=== PATIENT | male | born 1995 | race American Indian/Alaskan Native ===

== ENCOUNTER 2018-07-13 15:03 | Emergency (ER) | payer MEDICAID, OTHER ==
--- NOTE | 2018-07-13 16:25 | Emergency Department Report ---
Blank Doc - Documentation Documentation: This is a 23 y.o. male that presents for further evaluation for inpatient psyc hiatric treatment. PMH of autism, generalized anxiety, and depression. Mother reports he no longer can control anger. Today he told mom he no longer want to live because he is lonely. Patient admit to wanting to . He was seen at an outpatient clinic who advised he have workup for inpatient therapy. Ordered: labs Fast track for further evaluation.
[2018-07-13 17:04] LABS: Basophils % (Auto) 0.4 % (0.0-1.8); Eosinophils # (Auto) 0.1 K/mm3 (0.0-0.4); Eosinophils % (Auto) 2.2 % (0.0-4.3); Hematocrit 43.4 % (35.5-45.6); Hemoglobin 14.9 gm/dl (11.8-15.2); Lymphocytes # (Auto) 1.9 K/mm3 (1.2-5.4); Lymphocytes % (Auto) 46.1 % (13.4-35.0); Mean Corpuscular HGB Conc 34 % (32-34); Mean Corpuscular Volume 99 fl (84-94); Monocytes # (Auto) 0.5 K/mm3 (0.0-0.8); Monocytes % (Auto) 11.9 % (0.0-7.3); Platelet Count 228 K/mm3 (140-440); Red Blood Count 4.39 M/mm3 (3.65-5.03); Red Cell Distribution Width 12.6 % (13.2-15.2)
[2018-07-13 17:25] LABS: Alanine Aminotransferase 15 units/L (7-56); Albumin 4.6 g/dL (3.9-5); BUN/Creatinine Ratio 20; Blood Urea Nitrogen 16 mg/dL (9-20); Calcium 9.9 mg/dL (8.4-10.2); Hemolysis Index 23
--- NOTE | 2018-07-13 19:14 | Emergency Department Report ---
ED Psych HPI - General Chief Complaint: Psych Stated Complaint: PSYCH EVAL Time Seen by Provider: 07/13/18 16:20 Source: patient, family Mode of arrival: Ambulatory - History of Present Illness Initial Comments: Lenin is a very pleasant 73-year-old male with history of depression, and anxiety, autism and Asperger's syndrome who presents from Dr. Camejo's office for violent behavior toward mother and suicidal ideation. He states according to mother's report that he does not "want to be here anymore". He denies thoughts of harm to me. He does not recall pushing or hitting his mother. He is quite pleasant and alert. He is cooperative. MD Complaint: suicidal ideation, other (Christine behavior) -: Gradual Associated Psychiatric Symptoms: suicidal ideation Quality: resolved prior to arrival Associated Symptoms: denies other symptoms - Related Data Allergies Allergy/AdvReac Type Severity Reaction Status Date / Time Fish Containing Products Allergy Rash Verified 07/13/18 16:23 ED Review of Systems ROS: Stated complaint: PSYCH EVAL Other details as noted in HPI Constitutional: denies: fever, malaise Respiratory: denies: orthopnea Cardiovascular: denies: chest pain ED Past Medical Hx - Past Medical History Previous Medical History?: Yes Hx Psychiatric Treatment: Yes (depression, anxiety) Additional medical history: autism, aspergers - Surgical History Past Surgical History?: Yes Additional Surgical History: cleft lip repair - Social History Smoking Status: Never Smoker Substance Use Type: None ED Physical Exam - General Limitations: No Limitations General appearance: alert, in no apparent distress, other (smiling, pleasant, cooperative, calm) - Head Head exam: Present: atraumatic, normocephalic - Eye Eye exam: Present: normal appearance - ENT ENT exam: Present: mucous membranes moist - Neck Neck exam: Present: normal inspection - Respiratory Respiratory exam: Present: normal lung sounds bilaterally. Absent: respiratory distress, wheezes, rales, rhonchi - Cardiovascular Cardiovascular Exam: Present: regular rate, normal rhythm, normal heart sounds. Absent: systolic murmur, diastolic murmur, rubs, gallop - GI/Abdominal GI/Abdominal exam: Present: soft, normal bowel sounds. Absent: distended, tenderness, guarding, rebound - Rectal Rectal exam: Present: deferred - Extremities Exam Extremities exam: Present: normal inspection - Back Exam Back exam: Present: normal inspection - Neurological Exam Neurological exam: Present: alert, oriented X3 - Psychiatric Psychiatric exam: Present: normal affect, normal mood - Skin Skin exam: Present: warm, dry, intact, normal color. Absent: rash ED Course Vital Signs 07/13/18 15:17 Temperature 97.5 F L Pulse Rate 90 Respiratory 13 Rate Blood Pressure 118/71 [Right] O2 Sat by Pulse 99 Oximetry ED Medical Decision Making - Lab Data Result diagrams: 07/13/18 16:32 07/13/18 16:32 Lab Results 07/13/18 07/13/18 07/13/18 Range/Units 16:32 16:32 16:32 WBC 4.1 L (4.5-11.0) K/mm3 RBC 4.39 (3.65-5.03) M/mm3 Hgb 14.9 (11.8-15.2) gm/dl Hct 43.4 (35.5-45.6) % MCV 99 H (84-94) fl MCH 34 H (28-32) pg MCHC 34 (32-34) % RDW 12.6 L (13.2-15.2) % Plt Count 228 (140-440) K/mm3 Lymph % (Auto) 46.1 H (13.4-35.0) % Bibb % (Auto) 11.9 H (0.0-7.3) % Eos % (Auto) 2.2 (0.0-4.3) % Baso % (Auto) 0.4 (0.0-1.8) % Lymph # 1.9 (1.2-5.4) K/mm3 Bibb # 0.5 (0.0-0.8) K/mm3 Eos # 0.1 (0.0-0.4) K/mm3 Baso # 0.0 (0.0-0.1) K/mm3 Seg Neutrophils % 39.4 L (40.0-70.0) % Seg Neutrophils # 1.6 L (1.8-7.7) K/mm3 Sodium 141 (137-145) mmol/L Potassium 4.2 (3.6-5.0) mmol/L Chloride 101.3 (98-107) mmol/L Carbon Dioxide 27 (22-30) mmol/L Anion Gap 17 mmol/L BUN 16 (9-20) mg/dL Creatinine 0.8 (0.8-1.5) mg/dL Estimated GFR > 60 ml/min BUN/Creatinine Ratio 20 % Glucose 84 (75-100) mg/dL Calcium 9.9 (8.4-10.2) mg/dL Total Bilirubin 0.30 (0.1-1.2) mg/dL AST 18 (5-40) units/L ALT 15 (7-56) units/L Alkaline Phosphatase 59 (35-129) units/L Total Protein 7.2 (6.3-8.2) g/dL Albumin 4.6 (3.9-5) g/dL Albumin/Globulin Ratio 1.8 % TSH 2.690 (0.270-4.200) mlU/mL Plasma/Serum Alcohol (0-0.07) % 07/13/18 Range/Units 16:32 WBC (4.5-11.0) K/mm3 RBC (3.65-5.03) M/mm3 Hgb (11.8-15.2) gm/dl Hct (35.5-45.6) % MCV (84-94) fl MCH (28-32) pg MCHC (32-34) % RDW (13.2-15.2) % Plt Count (140-440) K/mm3 Lymph % (Auto) (13.4-35.0) % Bibb % (Auto) (0.0-7.3) % Eos % (Auto) (0.0-4.3) % Baso % (Auto) (0.0-1.8) % Lymph # (1.2-5.4) K/mm3 Bibb # (0.0-0.8) K/mm3 Eos # (0.0-0.4) K/mm3 Baso # (0.0-0.1) K/mm3 Seg Neutrophils % (40.0-70.0) % Seg Neutrophils # (1.8-7.7) K/mm3 Sodium (137-145) mmol/L Potassium (3.6-5.0) mmol/L Chloride (98-107) mmol/L Carbon Dioxide (22-30) mmol/L Anion Gap mmol/L BUN (9-20) mg/dL Creatinine (0.8-1.5) mg/dL Estimated GFR ml/min BUN/Creatinine Ratio % Glucose (75-100) mg/dL Calcium (8.4-10.2) mg/dL Total Bilirubin (0.1-1.2) mg/dL AST (5-40) units/L ALT (7-56) units/L Alkaline Phosphatase (35-129) units/L Total Protein (6.3-8.2) g/dL Albumin (3.9-5) g/dL Albumin/Globulin Ratio % TSH (0.270-4.200) mlU/mL Plasma/Serum Alcohol < 0.01 (0-0.07) % - Medical Decision Making Mr. Hurtado is a 23-year-old male with history of Asperger's syndrome, autism, depression and anxiety who presents with violent outbursts and suicidal ideation. Awaiting recommendations by our psychiatric team. At this time, Mr. Hurtado does not meet criteria for inpatient admission. In my opinion, he is low risk for self-harm. I have reviewed serum studies which were obtained. Labs are unremarkable. Mr. Hurtado is medically clear. In his present state, he is appropriate for discharge to home. Critical care attestation.: If time is entered above; I have spent that time in minutes in the direct care of this critically ill patient, excluding procedure time. ED Disposition Clinical Impression: Combative behavior, Autism, Suicidal ideation Disposition: DC-01 TO HOME OR SELFCARE Is pt being admited?: No Does the pt Need Aspirin: No Condition: Stable
[2018-07-14 02:53] VITALS: BP 118/74
[2018-07-14 10:24] LABS: Bilirubin,Urine NEG (Negative); Color,Urine Yellow (Yellow)
[2018-07-14 10:25] LABS: Blood,Urine NEG (Negative); Mucus,Urine 3+ /HPF; Protein,Urine <15 mg/dL mg/dL (Negative); Urobilinogen,Urine < 2.0 mg/dL (<2.0)
[2018-07-14 10:28] LABS: Amphetamine Screen,Urine PRESUMPTIVE NEGATIVE; Benzodiazepines Screen,Urine PRESUMPTIVE NEGATIVE; Cannabinoid Screen,Urine PRESUMPTIVE NEGATIVE; Cocaine Screen,Urine PRESUMPTIVE NEGATIVE; Methadone Screen,Urine PRESUMPTIVE NEGATIVE; Opiate Screen,Urine PRESUMPTIVE NEGATIVE
== END 2018-07-14 14:35 | disposition home or self-care (01) ==
LOC: ED 15:03 → EEVIPCON 15:03 → ED 07-14 14:35
DX: F84.0 Autistic disorder (principal); Z91.013 Allergy to seafood
CPT/HCPCS: 36415; 80053; 80307; 81001; 82962; 84443; 85025; 99285; G0480; 80320